=== PATIENT | female | born 2005 | race Two or more races ===

== ENCOUNTER 2024-08-17 06:09 | Emergency (ER) | payer OTHER ==
[~2024-08-17] VITALS: Ht 162.6 cm; Wt 49.0 kg
[2024-08-17] MEDS ORDERED: IBUprofen 800 MG TABLET PO SCH (07:21)
== END 2024-08-17 11:45 | disposition home or self-care (01) ==
LOC: EMR PED 06:11 → EDBD 06:11 → ER 06:11 → EMR PED 06:50
DX: J06.9 Acute upper respiratory infection, unspecified (principal); Z20.822 Contact with and (suspected) exposure to COVID-19